=== PATIENT | male | born 1960 | race African-American/Black ===

== ENCOUNTER 2017-01-12 17:15 | Emergency (ER) | payer OTHER ==
[~2017-01-12] VITALS: Ht 180.3 cm; Wt 94.1 kg
[~2017-01-12 17:15] MED LIST: CARI250T PO; PERCT PO
[2017-01-12 17:23] VITALS: BP 101/55
[2017-01-12] MEDS ORDERED: ALPR0.5T8 PO (17:30)
== END 2017-01-12 19:31 | disposition left against medical advice (07) ==
LOC: EMS 17:16
DX: R05 Cough (principal); F17.210 Nicotine dependence, cigarettes, uncomplicated; Z53.21 Procedure and treatment not carried out due to patient leaving prior to being seen by health care provider